=== PATIENT | male | born 1950 | race Caucasian/White ===

== ENCOUNTER 2021-09-18 07:52 | Day surgery (SDC) | payer OTHER, MEDICARE, SELFPAY ==
[2021-09-18] VITALS (7 sets, daily range): BP systolic 75–137; BP diastolic 47–96; PULSE 73–95; RESP 16; TEMP 35.4–36.1; O2SAT 91–94; BMI 38.2
[2021-09-18] MEDS: Lactated Ringers 1,000 ML 15 ML IV (08:38)
--- NOTE | 2021-09-18 09:10 | PCM.HP.BLA ---
History and Physical Date of Admission: 09/18/21 Intake Vital Signs 09/07/21 14:03 Height 6 ft 2 in Weight: 302 lb 8 oz BMI 38.8 BP 152/90 H Blood Pressure Location Rt brachial Position Sitting Respiration 16 Pulse 92 Pulse Source Monitor Temp 97.3 F L Temp Source Temporal Pulse Oximetry (%) 92 Oxygen Delivery Method room air Intake Visit Reasons: CSCOPE, DUE EVERY 3 YRS PFSH Surgical History (Updated 09/07/21 @ 14:00 by Altagracia Tuesday) H/O heart artery stent History of colonoscopy History of eye surgery S/P TURP (status post transurethral resection of prostate) Family History (Updated 09/07/21 @ 14:01 by Tuesday) Father Diabetes Heart disease Hypertension High cholesterol Social History (Updated 09/07/21 @ 14:02 by Altagraciatuesday) Smoking Status: Former smoker how long ago did patient quit smokin years alcohol intake: never substance use type: does not use HPI HPI HPI: GRACE RICHEY, is a 70 M who presents to the office today for colonoscopy. The patient's last colonoscopy was in 2015 and had multiple tubular adenomas identified and was recommended to repeat in 3 years. Patient does not have any blood in his stool or abdominal pain. He has no family history of colon cancer. He is on Xarelto for A. fib. ROS General General: No weight change, appetite, fatigue, colon cancer, breast cancer or weakness HEENT HEENT: No difficulty swallowing, eye injury, eye surgery, swollen glands or hoarseness Endo Endocrine: Yes diabetes mellitus; No thyroid disease, thyroid cancer, Hair loss, heat intolerance or cold intolerance Skin Skin: No rash or changing moles Musc Musculoskeletal: Yes gout; No back problems, arthritis, rheumatoid arthritis or joint pain Cardio Cardiovascular: Yes heart disease, high blood pressure and heart stent; No murmur, pacemaker, atrial fibrillation, heart attack, palpitations, shortness of breat with exertion or chest pain Psych Psychiatric: No depression, anxiety or hearing voices Resp Respiratory: Yes shortness of breath, No sleep apnea, Yes cough, Yes COPD, No asthma, No emphysema and No wheezing Gastro Gastrointestinal: No abdominal pain, No nausea or vomiting, No diarrhea, No constipation, No blood in stool, No acid reflux, No hemorrhoids, No ulcers, No gallbladder problem and No black,tarry stools Abner Hematologic: Yes blood thinners, No blood disorders, No bleeding, No anemia and No blood clots Neuro Neurologic: No system reviewed and no additional complaints, except as documented, No as per HPI, No abnormal gait, No abnormal hearing, No abnormal movements, No abnormal speech, No behavioral changes, No burning sensations, No confusion, No convulsions, No disequilibrium, No dizziness, No localized weakness, No frequent falls, No headache(s), No lack of coordination, No loss of vision, No memory loss, No numbness, No other visual disturbances, No radicular pain, No restless legs, No sensory deficit, No syncope, No tingling, No tremor(s), No weakness and No other Exam Const General: cooperative Orientation: alert and oriented x3 HENMT Head: normal to inspection Neck Neck: normal visual inspection and full ROM Chest Chest palpation & inspection: normal inspection of the chest Resp Effort & Inspection: normal respiratory effort Auscultation: clear to auscultation bilaterally Cardio Rate: regular rate Rhythm: regular rhythm GI Inspection: non-distended Palpation: soft and nontender Skin General: no rashes or lesions noted Neuro General: patient alert and patient oriented x3 Extrem General: full ROM Psych Appearance: grossly normal Mental Status: mental status grossly normal Assessment and Plan Assessment and Plan (1) History of colon polyps: Status: Acute Orders: Orders: Colonoscopy Today Plan - Dr. Leonid Vanegas MD: Patient has last colonoscopy in 2016 with multiple polyps identified and was recommended to have a repeat in 3 years. Plan for colonoscopy. I will asked the patient to stop the Xarelto for 3 days prior to the procedure. [facility] I explained endoscopy in detail to the patient. I explained the risks including but not limited to stroke or heart attack with anesthesia, perforation of the GI tract, bleeding, infection. I explained that any of these could necessitate further emergency surgery. The patient understands and all questions were answered sufficiently. The patient wishes to proceed with procedure. Leonid Vanegas MD Pager: [facility] [address] [place] [address], [address] [place] [address] Office: I have re-examined the patient. There are no clinical changes since date of exam.
--- NOTE | 2021-09-18 09:15 | COLBX_PTH ---
PATIENT: GRACE RICHEY LOC: [facility] U#:[id number] AGE/SX: 70/M ROOM: RE09/18/[address]: Dr. Leonid Vanegas MD : 1950 BED: DIS: 09/18/2021 SPEC #: [id number] RECD: 09/18/21 13:24 STATUS: KATHRYN TAURUS #: [id number] ELIZABETH: 09/18/21 09:[address]: Leonid Vanegas DEPT: SURGICAL PATHOLOGY RECD BY: Tresa Jha ENTERED: 09/18/21 14:02 SP TYPE: COLON BX OTHR DR: [facility] Tissues: A - Descending colon B - Sigmoid colon biopsy Procedures: Surgery Specimen Level IV HEADER OPERATION: Colonoscopy (MAC) PRE-OP DIAGNOSIS: History colon polyps / screening TISSUE SUBMITTED: A ? Descending colon polyp, B ? Sigmoid colon polyp MICROSCOPIC DIAGNOSIS A. Descending colon polyp, biopsy: Tubular adenoma. B. Sigmoid colon polyp, biopsy: Cauterized hyperplastic polyp. AM:ajit 09/21/2021 MICROSCOPIC DESCRIPTION Slides are reviewed. GROSS DESCRIPTION A - Received in fixative is one container labeled with the patient's name and designated descending colon polyp. The specimen consists of one irregular fragment of [place] soft tissue that measures 0.6 x 0.3 x 0.2 cm. The specimen is totally submitted in one cassette. B - Received in fixative is one container labeled with the patient's name and designated sigmoid colon polyp. The specimen consists of multiple irregular fragments of [place] soft tissue that in aggregate measure 0.6 x 0.2 x 0.1 cm. The specimen is totally submitted in one cassette. / AM:ajit 09/18/21 TC:5 CPT: 21169 x2
--- NOTE | 2021-09-18 09:15 | COLBX_PTH ---
PATIENT: GRACE RICHEY LOC: [facility] U#:[id number] AGE/SX: 70/M ROOM: RE09/18/[address]: Dr. Leonid Vanegas MD : 1950 BED: DIS: 09/18/2021 SPEC #: [id number] RECD: 09/18/21 13:24 STATUS: KATHRYN TAURUS #: [id number] ELIZABETH: 09/18/21 09:[address]: Leonid Vanegas DEPT: SURGICAL PATHOLOGY RECD BY: Tresa Jha ENTERED: 09/18/21 14:02 SP TYPE: COLON BX OTHR DR: [facility] Tissues: A - Descending colon B - Sigmoid colon biopsy Procedures: Surgery Specimen Level IV HEADER OPERATION: Colonoscopy (MAC) PRE-OP DIAGNOSIS: History colon polyps / screening TISSUE SUBMITTED: A ? Descending colon polyp, B ? Sigmoid colon polyp MICROSCOPIC DIAGNOSIS A. Descending colon polyp, biopsy: Tubular adenoma. B. Sigmoid colon polyp, biopsy: Cauterized tubular adenoma. AM:ajit 09/21/2021 AM:ajit 10/12/2021 MICROSCOPIC DESCRIPTION Slides are reviewed. GROSS DESCRIPTION A - Received in fixative is one container labeled with the patient's name and designated descending colon polyp. The specimen consists of one irregular fragment of [place] soft tissue that measures 0.6 x 0.3 x 0.2 cm. The specimen is totally submitted in one cassette. B - Received in fixative is one container labeled with the patient's name and designated sigmoid colon polyp. The specimen consists of multiple irregular fragments of [place] soft tissue that in aggregate measure 0.6 x 0.2 x 0.1 cm. The specimen is totally submitted in one cassette. / AM:ajit 09/18/21 TC:5 CPT: 63970 x2
--- NOTE | 2021-09-18 09:44 | OP.COLON_ITS ---
Patient Name: Shadi Cruz Procedure Date: 09/18/2021 9:14 AM Date of : 1950 Age: 70 Procedure: Colonoscopy Indications: High risk colon cancer surveillance: Personal history of colonic polyps Providers: Leonid Vanegas MD Medicines: Monitored Anesthesia Care Patient Profile: This is a 70 year old male. Refer to note in patient chart for documentation of history and physical. Last Colonoscopy: 5 years ago. Complications: No immediate complications. Estimated blood loss: Minimal. Procedure: Pre-Anesthesia Assessment: - Prior to the procedure, a History and Physical was performed, and patient medications and allergies were reviewed. The patient's tolerance of previous anesthesia was also reviewed. The risks and benefits of the procedure and the sedation options and risks were discussed with the patient. All questions were answered, and informed consent was obtained. Prior Anticoagulants: The patient has taken no previous anticoagulant or antiplatelet agents. After reviewing the risks and benefits, the patient was deemed in satisfactory condition to undergo the procedure. After I obtained informed consent, the scope was passed under direct vision. Throughout the procedure, the patient's blood pressure, pulse, and oxygen saturations were monitored continuously. The colonoscope was introduced through the anus and advanced to the cecum, identified by appendiceal orifice and ileocecal valve. The colonoscopy was performed without difficulty. The patient tolerated the procedure well. The quality of the bowel preparation was good. Scope In: 9:22:50 AM Scope Withdrawal Time 0 hours 8 minutes 8 seconds Scope Out: 9:37:18 AM Total Procedure Duration Time 0 hours 14 minutes 28 seconds Findings: Two polyps were found in the sigmoid colon and descending colon. These polyps were removed with a hot snare. Resection and retrieval were complete. Verification of patient identification for the specimen was done. The exam was otherwise without abnormality on direct and retroflexion views. Impression: - Two polyps in the sigmoid colon and in the descending colon, removed with a hot snare. Resected and retrieved. - The examination was otherwise normal on direct and retroflexion views. Recommendation: - Discharge patient to home. - Resume previous diet. - Continue present medications. - Await pathology results. - Repeat colonoscopy in 5 years for surveillance. Procedure Code(s): --- Professional --- 45115, Colonoscopy, flexible; with removal of tumor(s), polyp(s), or other lesion(s) by snare technique Diagnosis Code(s): --- Professional --- Z86.010, Personal history of colonic polyps D12.5, Benign neoplasm of sigmoid colon D12.4, Benign neoplasm of descending colon CPT copyright 2017 [employer]. All rights reserved. The codes documented in this report are preliminary and upon phosphoric acid supervisor review may be revised to meet current compliance requirements. Leonid Vanegas MD 09/18/2021 9:43:51 AM This report has been signed electronically. Number of Addenda: 0 Note Initiated On: 09/18/2021 9:14 AM
--- NOTE | 2021-09-18 09:44 | OP.CCLET_ITS ---
09/18/2021 [facility] Re : Colonoscopy procedure for Shadi [facility] This procedure was performed on Saturday, September 18, 2021. My impressions and recommendations are as follows: Impressions : - Two polyps in the sigmoid colon and in the descending colon, removed with a hot snare. Resected and retrieved. - The examination was otherwise normal on direct and retroflexion views. Recommendations : - Discharge patient to home. - Resume previous diet. - Continue present medications. - Await pathology results. - Repeat colonoscopy in 5 years for surveillance. My findings are described in the full procedure note, which is enclosed. If I can be of further assistance, please feel free to contact me at Doctor phone number(s): , Work: . Sincerely, Leonid Vanegas MD 09/18/2021 9:43:51 AM This report has been signed electronically.
[2021-09-18 10:45] LABS: Bedside Glucose 163 mg/dL (70-110)
== END 2021-09-18 10:22 | disposition home or self-care (01) ==
LOC: EN 08:02 → AC 08:03
PROVIDERS: Visit Provider Surgery
PROC: 0DJD8ZZ Inspection of Lower Intestinal Tract, Via Natural or Artificial Opening Endoscopic (ICD-10-PCS; CPT 45378; principal; 2021-09-18 09:10)
DX: Z12.11 Encounter for screening for malignant neoplasm of colon (principal); D12.4 Benign neoplasm of descending colon; D12.5 Benign neoplasm of sigmoid colon; I48.91 Unspecified atrial fibrillation; I35.0 Nonrheumatic aortic (valve) stenosis; I10 Essential (primary) hypertension; J44.9 Chronic obstructive pulmonary disease, unspecified; E11.9 Type 2 diabetes mellitus without complications; E78.00 Pure hypercholesterolemia, unspecified; M19.90 Unspecified osteoarthritis, unspecified site; Z95.5 Presence of coronary angioplasty implant and graft; Z79.82 Long term (current) use of aspirin; Z79.01 Long term (current) use of anticoagulants; Z79.84 Long term (current) use of oral hypoglycemic drugs; Z79.899 Other long term (current) drug therapy; Z86.010 Personal history of colon polyps; Z87.891 Personal history of nicotine dependence
CPT/HCPCS: 45385; 82962; 88305; J7120; J2405